=== PATIENT | female | born 1970 | race Caucasian/White ===

== ENCOUNTER 2022-02-11 07:40 | Emergency (ER) | payer OTHER ==
[~2022-02-11] VITALS: Ht 152.4 cm; Wt 63.6 kg
[~2022-02-11 07:40] MED LIST: ASPI-1444 PO; ATOR10TA PO; METF-1211 PO; SIMV-260 PO
[2022-02-11 09:05] VITALS: BP 119/63
== END 2022-02-11 09:20 | disposition home or self-care (01) ==
LOC: EMS 07:47
DX: S43.401A Unspecified sprain of right shoulder joint, initial encounter (principal); E11.9 Type 2 diabetes mellitus without complications; E78.00 Pure hypercholesterolemia, unspecified; I10 Essential (primary) hypertension; X58.XXXA Exposure to other specified factors, initial encounter; Y93.89 Activity, other specified; Y92.89 Other specified places as the place of occurrence of the external cause; Y99.8 Other external cause status
CPT/HCPCS: 82962; 99283